=== PATIENT | female | born 1950 | race Caucasian/White ===

== ENCOUNTER 2019-01-10 08:02 | Inpatient (IN) ==
[2019-01-10 08:52] LABS: BASO# 0.04 X1000 (0.0-0.2); BASO% 0.2 % (0.0-0.8); EOS# 0.06 X1000 (0.0-0.7); EOS% 0.3 % (0.0-10.0); HEMATOCRIT 38.5 % (37.0-47.0); HEMOGLOBIN 12.7 g/dL (12.0-16.0); IMM GRAN# 0.13 X1000 (0.0-0.04); IMM GRAN% 0.6 % (0.0-0.5); LYMPH# 0.51 X1000 (1.2-3.4); LYMPH% 2.2 % (20.5-51.1); MCH 29.6 PG (27-31); MCV 89.7 FL (81-99); MONO# 0.77 X1000 (0.11-0.59); MONO% 3.3 % (1.7-9.3); MPV 11.3 FL (7.4-10.4); NEUT# 21.61 X1000 (1.4-6.5); NEUT% 93.4 % (42.2-75.2); PLT 254 X1000 (130-400); RBC 4.29 XMIL (4.2-5.4); RDW 13.3 % (11.5-14.5); WBC 23.12 X1000 (4.8-10.8)
[2019-01-10 09:12] LABS: CLARITY VERY CLOUDY (CLEAR); COLOR YELLOW
[2019-01-10 09:13] LABS: BILIRUBIN URINE NEGATIVE (NEGATIVE); BLOOD URINE NEGATIVE (NEGATIVE); GLUCOSE URINE NEGATIVE (NEGATIVE); KETONE URINE 1+(Small) mg/dL (NEGATIVE); LEUKOCYTES URINE 1+ (NEGATIVE); NITRITE URINE NEGATIVE (NEGATIVE); PH URINE 6.5; PROTEIN URINE TRACE mg/dL (NEGATIVE); SP GRAVITY URINE 1.015; UROBILINOGEN URINE 4 mg/dL
[2019-01-10 09:14] LABS: URINE BACTERIA 3+ /HFP; URINE CAST NONE SEEN /LPF; URINE CRYSTAL NONE SEEN /HPF; URINE EPITHELIAL CELLS >10 /HPF (<10); URINE RBC <10 /HPF (<10); URINE SMALL ROUND CELLS RENAL PRESENT; URINE SOURCE CLEAN CATCH; URINE YEAST NONE SEEN /HPF
[2019-01-10 09:23] LABS: AGAP 15; ALBUMIN 3.7 g/dL (3.5-5.0); ALKALINE PHOSPHATASE 160 U/L (32-104); BUN 13 mg/dL (8-22); CALCIUM 9.3 mg/dL (8.8-10.2); CHLORIDE 104 mmol/L (98-107); CK PROFILE 62 U/L (24-173); COSMO 282; CREATININE 0.5 mg/dL (0.5-0.9); ESTIMATED GFR > 60; GLUCOSE 137 mg/dL (70-104); GOT 119 U/L (10-30); GPT 232 U/L (10-36); POTASSIUM 3.6 mmol/L (3.5-5.1); SODIUM 140 mmol/L (136-145); TCO2 22 mmol/L (25-35); TOTAL PROTEIN 6.9 g/dL (6.3-8.3)
[2019-01-10 09:32] LABS: INR 0.93; PROTIME 12.9 Seconds (11.0-16.0)
[2019-01-10 09:33] LABS: PTT 26.3 Seconds (22.3-41.8)
[2019-01-10 09:36] LABS: BANDS 5 % (0-1); EOS 1 % (1-10); LYMPHS 7 % (21-51); MONO 2 % (1-9); SEGS 85 % (42-75)
--- NOTE | 2019-01-10 10:03 | Diag Imaging Result Doc PS360 ---
EXAM: CHEST-1 VIEW HISTORY: sepsis TECHNIQUE: Single portable view of the chest COMPARISON: 09/13/2018 FINDINGS: The cardiomediastinal silhouette is within normal limits. The pulmonary vasculature is not congested. There is linear atelectasis right lung base. There is a new strandy infiltrate left lung base suspicious for pneumonia. There may be a trace left effusion. IMPRESSION: Left basilar infiltrate suspicious for pneumonia. Right platelike atelectasis. Electronically signed by Tita Castro 01/10/2019 8:55 AM
--- NOTE | 2019-01-10 10:16 | Diag Imaging Result Doc PS360 ---
EXAM: CT ABD/PELVIS W/IV CONT ONLY HISTORY: ABD PAIN, FLANK PAIN, FEVER, POST ABXS TECHNIQUE: Routine with IV contrast. No enteric contrast. COMPARISON: None. FINDINGS: There is strandy increased attenuation at the left lung base. There are cholecystectomy clips. The liver and spleen are grossly unremarkable. There is fatty infiltration of the pancreas. Adrenal glands and kidneys are unremarkable. No hydronephrosis. There is no bowel distention. Appendix is normal. There is no free air or free fluid. No inflammatory changes. Aorta is of normal caliber. No retroperitoneal or mesenteric lymphadenopathy is identified. There is bilateral L5 spondylolysis lysis with grade 1 spondylolisthesis. Uterus is surgically absent. Ovaries are not specifically identified. Urinary bladder is grossly unremarkable. IMPRESSION: 1.Nonspecific strandy attenuation left lung base. 2.Status post cholecystectomy and hysterectomy. 3.Bilateral L5 spondylolysis with grade 1 spondylolisthesis. This exam was performed using automated exposure control, adjustment of mA or kV according to patient size, and/or use of iterative reconstruction technique. Electronically signed by Tita Castro 01/10/2019 10:14 AM
[2019-01-10] MEDS ORDERED: LEVAQUIN 750 MG/D5W 750 MG/150 ML IVPB IV ONE (10:29)
[2019-01-10] MEDS ORDERED: NS 1,000 ML IV PRN (11:14)
[2019-01-10] MEDS ORDERED: ZOFRAN IV PRN (11:14)
--- NOTE | 2019-01-10 11:16 | PROVIDER DOCUMENTATION ---
HPI-General Adult - General Chief Complaint: UTI Symptoms Stated Complaint: UTI SX Time Seen by Provider: 01/10/19 08:38 Source: patient, family Allergies/Adverse Reactions: Patient Allergies Allergy/AdvReac Type Severity Reaction Status Date / Time Penicillins AdvReac HIVES Verified 01/10/19 08:18 Home Medications: Home Medication List Medication Instructions Recorded Confirmed Last Taken Type Lisinopril/Hydrochlorothiazide 1 ea PO IN HOLDING 01/10/19 01/10/19 01/10/19 History [Lisinopril-Hctz 20-12.5 mg Tab] Bisacodyl [Dulcolax] 10 mg PO DAILY PRN PRN tab 01/12/19 Unknown Rx Levofloxacin [Levaquin] 750 mg PO DAILY #10 tab 01/12/19 Unknown Rx - History of Present Illness -Gen Adult Nature of Presenting Problems: A 68 Y/O FEMALE PRESENTS WITH C/O BACK PAIN, DISCOMFORT AND NOT FEELING WELL. PER THE PT SHE WAS TREATED FOR UTI ABOUT A WEEK AGO WITH MACROBID AND TODAY MORNING WAS HER LAST DOSE AND SHE FEELS NO BETTER AT ALL. CONTINUES TO HAVE URINARY FREQUENCY BEFORE BUT NOW HAS SOME DYSURIA AND URGENCY. DENIES ANY HEMATURIA. TODAY SHE IS FEBRILE AND HER BACK PAIN IS ABOUT A 5. HAS SOME NAUSEA. DENIES ANY CP OR DIFFICULTY BREATHING. Location of Pain/Injury: reports: abdomen, back Pain Radiation: reports: flank (L) Quality of Pain: reports: aching, pressure Severity: reports: moderate Onset/Duration: reports: 1 week ago Timing: reports: still present, getting worse Context/Activities at Onset: reports: none Modifying Factors: improves with: nothing Associated Symptoms: reports: fever/chills, malaise, nausea, weakness. denies: chest pain, cough, EENT symptoms, headaches, heartburn, loss of appetite, sinus congestion/drainage, vomiting Similar Symptoms Previously?: Yes Recently seen or treated by another doctor?: Yes Review of Systems - Adult - REVIEW OF SYSTEMS - ADULT Constitutional: reports: see HPI Eyes: denies: no symptoms reported Ears, Nose, Mouth & Throat: denies: no symptoms reported Cardiovascular: denies: no symptoms reported Respiratory: denies: no symptoms reported Gastrointestinal: reports: see HPI Genitourinary: reports: see HPI Musculoskeletal: reports: see HPI Integumentary: denies: no symptoms reported Neurological: denies: no symptoms reported Psychiatric: denies: no symptoms reported Endocrine: denies: no symptoms reported Hematologic/Lymphatic: denies: no symptoms reported Allergic/Immunologic: denies: no symptoms reported Past History - Adult - PAST MEDICAL HISTORY-ADULT Review of Records: reports: Old Records Reviewed, Nursing Assessment Review, Medications Reviewed, Social history reviewed & non-contributory. Physical Exam-General - PHYSICAL EXAM-ADULT Initial Vital Signs Reviewed: Yes - CONSTITUTIONAL General Appearance: appears well, alert, no apparent distress - EYES Eyes: PERRL/EOMI - HEAD, EARS, NOSE, MOUTH & THROAT HENMT: normocephalic/atraumatic, moist mucous membranes, normal ENT inspection, pharynx normal - NECK Neck: supple - RESPIRATORY Respiratory: lungs clear, normal breath sounds, no pleuratic chest pain, no respiratory distress, no accessory muscle use - CARDIOVASCULAR Cardiovascular: regular rate, rhythm, no edema, no murmur - GASTROINTESTINAL (ABDOMEN) Abdominal Exam: soft, tenderness (MILD GENERALIZED TENDERNESS), other (LEFT FLANK TENDERNESS, MILD). negative: distended, guarding, rigid, rebound - MUSCULOSKELETAL Back Exam: negative: no CVA tenderness, no vertebral tenderness Extremity: no pedal edema, no calf tenderness Peripheral Pulses: radial (R): 2+, radial (L): 2+ - SKIN Integumentary: normal color, warm/dry - NEUROLOGIC Neurologic: grossly normal - PSYCHIATRIC Psych/Mental Status: normal mood/affect, normal thought content, normal thought process, oriented x 3 Progress - PLAN OF CARE/RESULTS Progress/Plan/Lab Results: Vital Signs - 8 hr 01/10/19 08:13 01/10/19 10:00 01/10/19 10:50 Temperature 100.1 F H 98 F Pulse Rate 124 H 104 H 112 H Respiratory Rate 28 H 16 16 Blood Pressure 118/69 114/57 126/59 O2 Sat by Pulse Oximetry 95 96 98 Laboratory Results - last 24 hr 01/10/19 01/10/19 01/10/19 06:41 08:40 08:40 WBC 23.12 H RBC 4.29 Hgb 12.7 Hct 38.5 MCV 89.7 MCH 29.6 MCHC 33.0 RDW Std Deviation 13.3 Plt Count 254 MPV 11.3 H Immature Gran % (Auto) 0.6 H Neut % (Auto) 93.4 H Lymph % (Auto) 2.2 L [place] % (Auto) 3.3 Eos % (Auto) 0.3 Baso % (Auto) 0.2 Immature Gran # (Auto) 0.13 H Neut # (Auto) 21.61 H Lymph # (Auto) 0.51 L [place] # (Auto) 0.77 H Eos # (Auto) 0.06 Baso # (Auto) 0.04 Segmented Neutrophils 85 H Band Neutrophils 5 H Lymphocytes 7 L Monocytes 2 Eosinophils 1 PT INR PTT (Actin FS) Sodium 140 Potassium 3.6 Chloride 104 Carbon Dioxide 22 L Anion Gap 15 BUN 13 Creatinine 0.5 Estimated GFR/1.73 m2 > 60 BUN/Creatinine Ratio 26 Glucose 137 H Calculated Osmolality 282 Calcium 9.3 Total Bilirubin 1.10 H AST 119 H ALT 232 H Alkaline Phosphatase 160 H Creatine Kinase 62 Troponin T Total Protein 6.9 Albumin 3.7 Globulin 3.0 Albumin/Globulin Ratio 1.0 Plasma Lactate Urine Source CLEAN CATCH Urine Color YELLOW Urine Clarity VERY CLOUDY A Urine pH 6.5 Ur Specific [place] 1.015 Urine Protein TRACE A Urine Ketones 1+(Small) A Urine Blood NEGATIVE Urine Nitrite NEGATIVE Urine Bilirubin NEGATIVE Urine Urobilinogen 4 Urine Microscopic RBC <10 Urine WBC 1+ A Urine Microscopic WBC 10-20 A Ur Epithelial Cells >10 A Urine Crystals NONE SEEN Small Round Cells RENAL PRESENT Urine Bacteria 3+ Urine Casts NONE SEEN Urine Yeast NONE SEEN Urine Glucose NEGATIVE 01/10/19 01/10/19 01/10/19 08:40 08:40 08:40 WBC RBC Hgb Hct MCV MCH MCHC RDW Std Deviation Plt Count MPV Immature Gran % (Auto) Neut % (Auto) Lymph % (Auto) [place] % (Auto) Eos % (Auto) Baso % (Auto) Immature Gran # (Auto) Neut # (Auto) Lymph # (Auto) [place] # (Auto) Eos # (Auto) Baso # (Auto) Segmented Neutrophils Band Neutrophils Lymphocytes Monocytes Eosinophils PT 12.9 INR 0.93 PTT (Actin FS) 26.3 Sodium Potassium Chloride Carbon Dioxide Anion Gap BUN Creatinine Estimated GFR/1.73 m2 BUN/Creatinine Ratio Glucose Calculated Osmolality Calcium Total Bilirubin AST ALT Alkaline Phosphatase Creatine Kinase Troponin T < 0.010 Total Protein Albumin Globulin Albumin/Globulin Ratio Plasma Lactate 1.3 Urine Source Urine Color Urine Clarity Urine pH Ur Specific [place] Urine Protein Urine Ketones Urine Blood Urine Nitrite Urine Bilirubin Urine Urobilinogen Urine Microscopic RBC Urine WBC Urine Microscopic WBC Ur Epithelial Cells Urine Crystals Small Round Cells Urine Bacteria Urine Casts Urine Yeast Urine Glucose Orders Category Date Time Status Cardiac Monitoring DIRECTED Care 01/10/19 08:20 Active IV Insertion ORDERED Care 01/10/19 08:20 Completed Notify MD of + Sepsis Screen NOW Care 01/10/19 08:20 Active Notify Physician As Ordered Care 01/10/19 08:20 Active CHEST-1 VIEW [RAD] Stat Exams 01/10/19 08:[address] ABD/PELVIS W/IV CONT ONLY [CT] Stat Exams 01/10/19 08:52 Completed BLOOD CULTURE [BLDCUL] Stat Lab 01/10/19 09:08 Received CBC WITH DIFF [HEME] Stat Lab 01/10/19 08:40 Completed CK PROFILE [SP CHEM] Stat Lab 01/10/19 08:40 Completed COMPREHENSIVE METABOLIC PANEL [CHEM] Stat Lab 01/10/19 08:40 Completed LACTATE, PLASMA [CHEM] Lab 01/10/19 08:40 Completed LACTATE, PLASMA [CHEM] Lab 01/10/19 11:30 Uncollected LACTATE, PLASMA [CHEM] Lab 01/10/19 14:30 Uncollected PROTIME WITH INR [COAG] Stat Lab 01/10/19 08:40 Completed PTT [COAG] Stat Lab 01/10/19 08:40 Completed TROPONIN T Stat Lab 01/10/19 08:40 Completed UA NIMS W/REFLEX CULT PL [URINALYSIS] Stat Lab 01/10/19 06:41 Completed URINE CULTURE [RM] Routine Lab 01/10/19 09:15 Received Levofloxacin 750 mg/D5w [Levaquin 750 mg/D5w] Med 01/10/19 10:29 Active 750 mg in 150 ml IV NOW Oxygen Device Stat Oth 01/10/19 08:20 Active Result Diagrams: 01/12/19 05:16 01/12/19 05:16 - REASSESSMENT Reassessment #1 Time Reassessed: 10:38 Status: unchanged Reassessment Comment: D/W PT, WILL ADMIT - CONSULTS/PCP/HOSPITALIST Notification #1 *Consult/PCP/Hospitalist*: D/W DR SAWYER Time Discussed: 10:45 Consult Disposition: Admit Departure - Departure Date of Disposition Decision: 01/10/19 Time of Disposition Decision: 10:45 DIAGNOSIS: UTI (urinary tract infection), Pneumonia Disposition: ADMITTED INPATIENT 09 Certified Medical Emergency: Emergent Condition: Stable - Critical Care Note This patient required my direct & personal management of CC.: No Attestation - Physician/ ADA Attestation Patient care was provided by Advanced Practice Provider:: No The physician spent face to face time with patient:: Yes Advanced Practice Provider documentation review:: Supervising physician onsite and consulted in the evaluation and care of this patient. The physician did have a face to face encounter with the patient.
[2019-01-10] MEDS ORDERED: DULCOLAX PO ONE (12:48)
[2019-01-10] MEDS ORDERED: DULCOLAX PO PRN (12:48)
[2019-01-10 14:01] LABS: AMYLASE 56 U/L (20-200); LIPASE 25 U/L (13-60)
--- NOTE | 2019-01-10 14:47 | HISTORY AND PHYSICAL ---
PRIMARY CARE PROVIDER: Dr. Mccloud. CHIEF COMPLAINT: Urinary frequency, back pain on the right. HISTORY OF PRESENT ILLNESS: Ms. Kelly Luna is a 68-year-old female with a medical history of hypertension and arthritis, who presents with complaints of worsening urinary frequency, fever, chills, urinary urgency as well, and back pain. Back pain is mostly in the right back, radiates all the way to the bladder area in the front, the suprapubic area. She denies having hematuria. States that last week is when she started having symptoms on Thursday, and then she went to her primary care provider on Thursday, so today was going to be her last dose for Macrobid, so she had taken Macrobid twice a day. She had 1 more dose due for tonight. But given the fact that she kept having fever and chills, she presented to the emergency department. Surprisingly, we also found a left lower lobe pneumonia although she does not have symptoms like coughing up colors. So she has been started on Levaquin and some IV fluids. We will monitor her through the night. She also has had some complaints of dry heaves with this urinary tract infection and she has also been constipated for 3 days now. PAST MEDICAL HISTORY: 1. Hypertension. 2. Arthritis. PAST SURGICAL HISTORY: 1. Three sections. 2. Hysterectomy. 3. Cholecystectomy. SOCIAL HISTORY: Denies tobacco, alcohol or illicit drug use. FAMILY HISTORY: Father had congestive heart failure. Mother had a stroke in her 70s. ALLERGIES: 1. Penicillin causes hives. 2. Sulfa drugs cause agitation. HOME MEDICATIONS: 1. Lisinopril/hydrochlorothiazide 1 tab p.o. daily, 20/12.5 dose. 2. Just finished up Macrobid. REVIEW OF SYSTEMS: A 14- point review of systems is complete and all were negative except for those mentioned above in HPI. PHYSICAL EXAMINATION: VITAL SIGNS: Temperature 98.4 degrees, heart rate 98, respiratory rate 16, blood pressure 120/60, O2 saturation 100% on room air. She is 5 feet 2 inches tall, 186 pounds. BMI is 34. GENERAL: Ms. Kelly Luna is a 68-year-old female. She is in no acute distress. She is able to answer questions appropriately next. HEENT: Atraumatic, normocephalic. Pupils equal, round, reactive to light. Extraocular movements intact. Mucous membranes are moist. NECK: Trachea midline. CARDIOVASCULAR: S1, S2. Regular rate and rhythm. No rubs, gallops, murmurs. No lower extremity edema. +2 dorsalis and radial pulses. Negative JVD or carotid bruits. PULMONARY: Clear to auscultation. Bilateral breath sounds. No accessory muscle use or work of breathing noted. ABDOMEN: Soft, nontender, nondistended. Positive bowel sounds x4. She is tender in the right flank area. It radiates to the suprapubic region. EXTREMITIES: Moves all extremities equally. Full range of motion. NEUROLOGIC: Alert and oriented x3. Follows commands. Sensory is intact. SKIN: Warm, dry, intact. LABORATORY DATA: White blood cells, 23,000, hemoglobin 12, hematocrit 38, platelet count 254,000. INR 0.93, PTT is 26.3. Sodium 140, potassium 3.6, BUN 13, creatinine 0.5, glucose 137, calcium 9.3, bilirubin 1.10, AST 119, ALT 232. CK 62, troponin less than 0.01. Albumin 3.7, serum lactate 1.3. Urinalysis: Urine is very cloudy, trace protein, 1+ ketones, 1+ white blood cells, 10 to 20 microscopic white blood cells, 3+ bacteria, nitrites negative. IMAGIN. Abdominal pelvic CT. Nonspecific strandy attenuation in the left lung base. Some spondylolysis in L5 with grade 1 spondylolisthesis. It shows that the liver and spleen are unremarkable with some fatty infiltration around the pancreas. 2. Chest x-ray: Left basilar infiltrate suspicious for pneumonia. ASSESSMENT AND PLAN: 1. Failed outpatient treatment for urinary tract infection. We will continue with IV Levaquin for that. 2. Left lower lobe pneumonia, community acquired. Again Levaquin should help with that. She was essentially asymptomatic though with this. There was no phlegm production. 3. Hyperbilirubinemia, mild with transaminitis. Will do a hepatitis panel. Will also check amylase, lipase. Liver is normal on the CAT scan. May just get an ultrasound. 4. Right-sided back pain. Again we will just get an abdominal ultrasound to evaluate for any causes. 5. Deep venous thrombosis prophylaxis. Sequential compression devices. 6. Constipation. Will give oral bisacodyl. Dictated by EVI Hurley for Dipesh Bolivar MD cc: EVI Hurley MD
--- NOTE | 2019-01-10 16:02 | Diag Imaging Result Doc PS360 ---
US ABDOMEN-COMPLETE - 01/10/2019 INDICATION: pain on the right abd/back TECHNIQUE: Parmar scale, color Doppler, and duplex evaluation of the abdomen was performed. COMPARISON: None FINDINGS: The liver appears normal in size and echotexture. No focal masses are appreciated. The IVC and aorta appear normal. The pancreas is obscured by bowel gas artifact. The gallbladder is surgically absent. The common bile duct measures 4 mm. The portal vein is patent with hepatopetal flow. Spleen is unremarkable. The kidneys appear normal bilaterally. There is no hydronephrosis. IMPRESSION: Status post cholecystectomy. Otherwise normal abdominal ultrasound . Electronically signed by Tita Castro 01/10/2019 3:59 PM
[2019-01-10] MEDS: ATROVENT NEB INH SCH ×2 (16:18→21:41)
[2019-01-10] MEDS: XOPENEX NEB INH SCH ×2 (16:18→21:40)
--- NOTE | 2019-01-10 19:11 | HISTORY AND PHYSICAL ---
ADDENDUM: Patient seen and examined by myself. Full note dictated and discussed with nurse practitioner. Patient presented to the hospital with urinary symptoms, subsequently diagnosed with a urinary tract infection as well as pneumonia. We are going to put her in the hospital, place her on antibiotics, and will follow. Please see full note. cc: Dipesh Bolivar MD MTDD
[2019-01-11] MEDS: ATROVENT NEB INH SCH ×4 (03:11→21:54)
[2019-01-11] MEDS: XOPENEX NEB INH SCH ×4 (03:12→21:54)
[2019-01-11 06:10] LABS: BASO# 0.03 X1000 (0.0-0.2); BASO% 0.3 % (0.0-0.8); EOS# 0.66 X1000 (0.0-0.7); EOS% 7.6 % (0.0-10.0); HEMOGLOBIN 10.8 g/dL (12.0-16.0); IMM GRAN# 0.08 X1000 (0.0-0.04); IMM GRAN% 0.9 % (0.0-0.5); LYMPH# 1.27 X1000 (1.2-3.4); LYMPH% 14.7 % (20.5-51.1); MCHC 31.8 g/dL (33-37); MCV 91.2 FL (81-99); MONO# 0.73 X1000 (0.11-0.59); MONO% 8.5 % (1.7-9.3); MPV 11.4 FL (7.4-10.4); NEUT# 5.86 X1000 (1.4-6.5); PLT 229 X1000 (130-400); RBC 3.73 XMIL (4.2-5.4); RDW 13.5 % (11.5-14.5); WBC 8.63 X1000 (4.8-10.8)
[2019-01-11 06:44] LABS: AGAP 17; ALBUMIN 3.3 g/dL (3.5-5.0); ALKALINE PHOSPHATASE 131 U/L (32-104); BUN 9 mg/dL (8-22); CALCIUM 8.8 mg/dL (8.8-10.2); CHLORIDE 108 mmol/L (98-107); COSMO 297; CREATININE 0.5 mg/dL (0.5-0.9); ESTIMATED GFR > 60; GLUCOSE 113 mg/dL (70-104); GOT 52 U/L (10-30); GPT 159 U/L (10-36); POTASSIUM 3.3 mmol/L (3.5-5.1); SODIUM 150 mmol/L (136-145); TCO2 25 mmol/L (25-35)
[2019-01-11] MEDS: LEVAQUIN 750 MG/D5W 750 MG/150 ML IVPB IV SCH (09:57)
[2019-01-11 13:18] LABS: HEPATITIS PROFILE ACUTE SEE COMMENTS
[2019-01-11] MEDS: D5W 1,000 ML IV SCH (13:27)
[2019-01-11] MEDS ORDERED: KLOR-CON PO ONE (13:30)
--- NOTE | 2019-01-11 13:59 | PROGRESS NOTE ---
DATE: 01/11/2019 SUBJECTIVE: The patient reports feeling fine. Definitely less general weakness and malaise. Denies any fever or chills. OBJECTIVE: Vital Signs: Temperature 97.9 degrees, heart rate 80, respiratory rate 20, blood pressure 120/55, O2 saturation 97% on room air. General Examination: This is a 68-year-old female lying in bed, in no acute distress. Cardiovascular: S1, S2 heard. No murmurs, gallops, or rubs. Regular rate and rhythm. Respiratory: Clear bilaterally to auscultation. No work of breathing or using accessory muscles. Abdomen: Soft. Nontender to palpation. Bowel sounds present. No organomegaly. Extremities: No clubbing, cyanosis, or edema. Peripheral pulses present in both legs. Neurological: The patient is alert, oriented x3. Moves 4 extremities. Neurological: The. In summary extremity no clubbing, cyanosis, or edema. Peripheral pulses present in both legs. Neurological: The patient alert oriented x3. Moves 4 extremities. LABORATORY DATA: White cell count has decreased from 23 to 8.63. The BMP shows potassium 3.3 and sodium 150. ASSESSMENT/PLAN: 1. Failure of outpatient treatment for UTI. Patient is on Levaquin and she is responding nicely to this medication. White cell count is back to normal. We will continue with same management. 2. Left lower lobe pneumonia community acquired. We will continue with Levaquin. The patient is not spiking any fever. 3. Hyperbilirubinemia with mild transaminitis. Hepatitis panel is still pending. The patient is not complaining of any major symptoms like nausea or vomiting. 4. Deep vein thrombosis prophylaxis on SCDs. 5. Constipation. We will continue with stool softeners. 6. Disposition: If labs are back to normal tomorrow, I think she can be safely discharged home. cc: Vadim Cano MD
[2019-01-12] MEDS: XOPENEX NEB INH SCH ×2 (03:05→09:43)
[2019-01-12] MEDS: ATROVENT NEB INH SCH ×2 (03:05→09:44)
[2019-01-12] MEDS: D5W 1,000 ML IV SCH (03:08)
[2019-01-12 05:52] LABS: BASO# 0.05 X1000 (0.0-0.2); BASO% 0.6 % (0.0-0.8); EOS# 0.57 X1000 (0.0-0.7); EOS% 6.7 % (0.0-10.0); HEMATOCRIT 34.1 % (37.0-47.0); HEMOGLOBIN 10.7 g/dL (12.0-16.0); IMM GRAN# 0.16 X1000 (0.0-0.04); IMM GRAN% 1.9 % (0.0-0.5); LYMPH# 1.72 X1000 (1.2-3.4); LYMPH% 20.3 % (20.5-51.1); MCH 28.8 PG (27-31); MCHC 31.4 g/dL (33-37); MCV 91.7 FL (81-99); MONO# 0.78 X1000 (0.11-0.59); MONO% 9.2 % (1.7-9.3); MPV 11.1 FL (7.4-10.4); NEUT# 5.19 X1000 (1.4-6.5); NEUT% 61.3 % (42.2-75.2); PLT 245 X1000 (130-400); RBC 3.72 XMIL (4.2-5.4); RDW 13.5 % (11.5-14.5); WBC 8.47 X1000 (4.8-10.8)
[2019-01-12 06:14] LABS: AGAP 7; BUN 10 mg/dL (8-22); CALCIUM 8.8 mg/dL (8.8-10.2); CHLORIDE 108 mmol/L (98-107); COSMO 278; CREATININE 0.6 mg/dL (0.5-0.9); ESTIMATED GFR > 60; GLUCOSE 128 mg/dL (70-104); POTASSIUM 3.9 mmol/L (3.5-5.1); SODIUM 139 mmol/L (136-145); TCO2 24 mmol/L (25-35)
[2019-01-12 07:40] VITALS: BP 121/67
[2019-01-12] MEDS: LEVAQUIN 750 MG/D5W 750 MG/150 ML IVPB IV SCH (09:36)
--- NOTE | 2019-01-13 05:21 | DISCHARGE SUMMARY ---
ADMISSION DATE: 01/10/2019 DISCHARGE DATE: 01/12/2019 ADMISSION DIAGNOSES: 1. Failed outpatient treatment for urinary tract infection. 2. Left lower lobe pneumonia community-acquired. 3. Hyperbilirubinemia with mild transaminitis. 4. Right-sided back pain. 5. Constipation. DISCHARGE DIAGNOSES: 1. Failed outpatient treatment for urinary tract infection. 2. Left lower lobe pneumonia community acquired. 3. Hyperbilirubinemia with transaminitis. 4. Constipation. CONSULTATIONS: None. SURGERIES AND PROCEDURES: None. HOSPITAL COURSE: Ms. Kelly Luna is a 68-year-old female with a medical history of hypertension and arthritis who came in with complaints of worsening urinary frequency, fever, chills, urgency, and back pain mostly on the right flank area that radiated to the suprapubic area. Denies any hematuria, but states that she had been taking Macrobid already twice a day for treatment of urinary tract infection. She had just finished the dosing or actually had one more dose left. Due to the worsening symptoms, she came to [facility] for further treatment. Consequently, she also found a left lower lobe pneumonia but no symptoms. She was started on Levaquin and IV fluids. Given the location of back pain, abdominal and flank pain, we went ahead and got an ultrasound and did not show anything acute. She also states she has been constipated, and had not had a bowel movement for 3 days so she was given medication for that and had a bowel movement four soft ones. [place] [address], but after antibiotic therapy it dropped down to 8. Liver enzymes also improved with fluid hydration. Hepatitis panel was checked, and it was nonreactive. Micro did not show any growth in the urine, but she was symptomatic and she did respond positively to the antibiotic coverage. She will go home with Levaquin. DISCHARGE VITAL SIGNS: Temperature 98.2 degrees, heart rate 75, respiratory rate 18, blood pressure 121/67, and O2 saturation 100% on room air. DISCHARGE LABORATORY DATA: White blood cells 8000, hemoglobin 10, hematocrit 34, and platelet count 245,000. Sodium 139, potassium 3.9, BUN 10, creatinine 0.6, glucose 128 and calcium 8.8. IMAGING: Chest x-ray shows left basilar infiltrate suspicious for pneumonia. Abdominal and pelvic CT nonspecific attenuation left lung base. Standard post cholecystectomy and hysterectomy, bilateral L5 spondylosis with grade 1 spondylolisthesis. Abdominal ultrasound status post cholecystectomy. Otherwise, normal ultrasound. Telemetry strip showed normal sinus rhythm. DISCHARGED MEDICATIONS: 1. Lisinopril and hydrochlorothiazide 1 tablet p.o. 2. Bisacodyl 10 mg p.o. daily as needed for constipation. 3. Levaquin 750 mg p.o. daily for 10 days. DISCHARGE DIET: Regular. DISCHARGE ACTIVITY: As tolerated. DISCHARGE DISPOSITION: Follow up with Dr. Mccloud. DISCHARGE INSTRUCTIONS: If her condition changes, contact physician and/or return to the emergency department. Changes may include, but not limited to, shortness of breath, increased fatigue, excessive bleeding, unexplained weight loss or gain, unmanageable pain, signs or symptoms of infection. DISCHARGE DISPOSITION: Home. Dictated by EVI Hurley for Vadim Cano MD Addendum: Patient seen and examined by myself. Agree with EVI note. It reflects my assessment and plan. Patient is being discharged from hospital in stable condition. Will be seen by PCP in a week. cc: EVI Hurley MD MTD
== END 2019-01-12 11:16 | disposition home or self-care (01) | DRG 689 ==
LOC: P.ED 08:02 → P.MEDSURG 11:43 → SUATTDRO 11:43
PROVIDERS: ATTEND Internal Medicine